=== PATIENT | male | born 1940 | race Caucasian/White ===

== ENCOUNTER → 2017-11-02 | Outpatient (CLI) | payer OTHER ==
[~2017-11-02] MED LIST: IOPAMIDOL (ISOVUE-300) 100 ML BTL ONE
== END ==
LOC: FIMAGING 08:06
PROVIDERS: ATTEND Specialist
DX: Z08 Encounter for follow-up examination after completed treatment for malignant neoplasm (principal); R91.1 Solitary pulmonary nodule; Z85.528 Personal history of other malignant neoplasm of kidney
CPT/HCPCS: 74177; Q9967

== ENCOUNTER → 2018-02-05 | Outpatient (CLI) | payer OTHER | LOC: FIMAGING 17:53 | PROVIDERS: ATTEND Internal Medicine | DX: G31.9 Degenerative disease of nervous system, unspecified (principal); G93.89 Other specified disorders of brain ==

== ENCOUNTER → 2018-11-04 | Outpatient (CLI) | payer OTHER | LOC: FIMAGING 08:38 | PROVIDERS: ATTEND Specialist | DX: Z08 Encounter for follow-up examination after completed treatment for malignant neoplasm (principal); Z90.5 Acquired absence of kidney; R91.8 Other nonspecific abnormal finding of lung field | CPT/HCPCS: 74177; Q9967; 82565-PO ==